=== PATIENT | male | born 1960 | race Caucasian/White ===

== ENCOUNTER → 2019-04-04 19:05 | Outpatient (ROUT) | payer OTHER, SELFPAY | PROVIDERS: Visit Provider Internal Medicine | DX: R30.0 Dysuria (principal) | CPT/HCPCS: 87086 ==

== ENCOUNTER → 2019-04-14 08:46 | Outpatient (CLI) | payer OTHER, SELFPAY ==
--- NOTE | 2019-04-14 | DI.MRI.S_ITS ---
PROCEDURE: MR LUMBAR SPINE WO CON INDICATIONS: Dysuria,Radiculopathy, lumbar region TECHNIQUE: Noncontrast sagittal T1 spin echo and T2 fast echo, sagittal STIR, axial T1 and T2 fast spin echo through the lumbar spine. In cases with scoliosis, additional coronal T2 fast spin echo may be performed. COMPARISON: None. FINDINGS: Image quality: Excellent. Alignment and Curvature: No plain films are available for comparison, for numbering purposes. Thus, for the purposes of this examination, 5 lumbar type vertebral bodies will be presumed, as denoted on the montage panel. This should be confirmed and correlated with plain films, prior to any lumbar spinal intervention.There is normal bony alignment. Bone Marrow: Marrow is of normal overall signal. No acute vertebral body compression fractures. There is mild reactive signal within the endplates adjacent to the the L2-L3, L3-L4, and L4-L5 intervertebral discs. Spinal Cord: Conus medullaris terminates at the lower L2 level. Visualized cord demonstrates normal signal and size. Paraspinous Soft Tissues: No paravertebral masses. L1-L2: Mild facet and ligamentum flavum hypertrophy. Mild epidural lipomatosis. Mild canal stenosis. No foraminal stenosis. L2-L3: Mild disc height loss and desiccation. Mild diffuse disc bulge/osteophyte. Mild facet and ligament flavum hypertrophy. Mild epidural lipomatosis. Moderate to severe canal stenosis. Mild bilateral foraminal stenosis. L3-L4: Moderate disc desiccation. Mild disc height loss. Mild diffuse disc bulge. Mild facet and ligamentum flavum hypertrophy. Mild epidural lipomatosis. Severe canal stenosis. Moderate subarticular foraminal stenosis bilaterally. L4-L5: Mild disc desiccation. Mild disc height loss. Mild diffuse disc bulge. Moderate facet and ligamentum flavum hypertrophy. Mild epidural lipomatosis. Severe canal stenosis. Moderate subarticular foraminal stenosis bilaterally. L5-S1: Mild disc height loss and desiccation. Mild diffuse disc bulge with superimposed broad-based left posterolateral protrusion. Mild bilateral facet hypertrophy. Mild canal stenosis. Mild left greater than right foraminal stenosis. IMPRESSION: 1. 5 lumbar type vertebral bodies were presumed for the current report. Plain films of the lumbar spine are recommended for confirmation, prior to any lumbar spinal intervention. 2. Multilevel degenerative disc and facet disease, as well as ligamentum flavum hypertrophy and epidural lipomatosis. 3. Multilevel canal stenoses, worst at L3-L4 and L4-L5, where there are severe canal stenoses present. Moderate to severe canal stenosis at L2-L3 is present. 4. Multilevel foraminal stenoses, worst at L3-L4 and L4-L5 bilaterally, where there are moderate foraminal stenosis present. Dictated by: Marcelo Moya M.D. on 04/14/2019 at 10:05 Approved by: Marcelo Moya M.D. on 04/14/2019 at 10:08
--- NOTE | 2019-04-14 | DI.MRI.S_ITS ---
PROCEDURE: MR CERVICAL SPINE WO CON INDICATIONS: Dysuria, Radiculopathy, lumbar region TECHNIQUE: Noncontrast sagittal T1 spin echo and T2 fast spin echo, sagittal STIR, foraminal oblique sagittal T2 fast spin echo, and axial gradient echo or T2 fast spin echo through the cervical spine. COMPARISON: [facility], MR, MR LUMBAR SPINE WO CON, 04/14/2019, 9:48. FINDINGS: Image quality: Excellent. Alignment and Curvature: There is normal bony alignment. Bone Marrow: Marrow demonstrates normal overall signal. Spinal Cord: Visualized spinal cord has normal size and signal. No cerebellar tonsillar herniation. Paraspinous Soft Tissues: No paravertebral masses. Prevertebral soft tissues are normal in thickness. C2-C3: The disc height and disc signal are relatively well-preserved. There is mild to moderate left-sided and no significant right-sided neural foraminal narrowing seen. Central canal narrowing is seen. C3-C4: The disc height is well-preserved. Loss of disc signal is seen at this level. Mild disc osteophyte complex is seen, with a mild central disc osteophyte protrusion. There is mild to moderate left-sided and no significant right-sided neural foraminal narrowing seen. Dibe-cx-jqtgjzxy central canal narrowing is seen. C4-C5: Mild loss of disc height is seen. Loss of disc signal is seen. Bridging endplate osteophytes are seen. Nvkj-ef-ddfybctc disc bulge is seen, which is eccentric to the left side. Pzcl-fe-aaohgspe facet hypertrophy is seen. There is mild left-sided and no right-sided neural foraminal narrowing seen. Mild central canal narrowing is seen. C5-C6: The disc height is well-preserved. Loss of disc signal is seen at this level. Moderate to prominent disc bulge is seen, which is eccentric to the left. There are disc osteophyte protrusions seen into both lateral recesses, as on series 4 image 26. Moderate to severe bilateral neural narrowing can be seen, left worse than right. Moderate central canal narrowing is seen. There is associated mass effect upon the ventral spinal cord. C6-C7: The disc height is well-preserved. Loss of disc signal is seen at this level. Moderate generalized disc osteophyte complex is seen. There is a superimposed central disc osteophyte protrusion seen. There is moderate right-sided and moderate to severe left-sided neural foraminal narrowing seen. Pqkh-ue-gxampwqk central canal narrowing is seen. C7-T1: No significant abnormality is seen. IMPRESSION: Multiple levels of cervical spine degenerative changes are seen, which are most prominent at the C5-C6 level. Dictated by: Dustin Booth M.D. on 04/14/2019 at 10:37 Approved by: Dustin Booth M.D. on 04/14/2019 at 10:47
--- NOTE | 2019-04-14 | DI.US.S_ITS ---
PROCEDURE: US RENAL COMPLETE INDICATIONS: DYSURIA TECHNIQUE: Real-time scanning was performed of the kidneys and bladder, with image documentation. COMPARISON: None. FINDINGS: Kidneys: Kidneys are normal in size. Right kidney measures 10.7 cm long; left kidney measures 10.8 cm long. Right renal cortical thickness is 1.0 cm; left renal cortical thickness is 1.4 cm. Renal cortical echotexture is normal. No hydronephrosis or nephrolithiasis. Possible hypoechoic mass involving the superior pole right kidney measuring 2.1 x 2.1 cm. Bladder: Pre-void bladder volume is 70 mL. Post-void residual is 0 mL. Pre-void images demonstrate no intraluminal masses or stones. On pre-void images, left ureteral jets are noted with color Doppler interrogation. (Of note, ureteral jets may not be detectable in up to 25% of cases due to insufficient differences in specific gravity between ureteral and bladder urine). Miscellaneous: No free pelvic fluid. IMPRESSION: 1. Possible hypoechoic superior pole right renal mass. Recommend renal protocol CT for further assessment. Dictated by: Hieu Roach [facility] Interpreted: Moisés Fulton MD on 04/14/2019 at 11:44 Approved by: Moisés Fulton M.D. on 04/15/2019 at 8:10
[2019-04-14 10:57] LABS: Add Manual Diff / Slide Review NO; Basophils Absolute Auto 100 /uL (0-100); Basophils Percent Auto 1.2 % (0-2); Eosinophils Absolute Auto 200 /uL (0-450); Eosinophils Percent Auto 4.5 % (2-4); Hematocrit 43.1 % (41-53); Lymphocytes Absolute Auto 1700 /uL (1100-4500); Lymphocytes Percent Auto 30.3 % (25-40); Mean Corpuscular HGB Conc 34.9 % (30-36); Mean Corpuscular Hemoglobin 30.4 PG (26-34); Monocytes Absolute Auto 500 /uL (0-900); Neutrophils Absolute Auto 3100 /uL (1500-7000); Platelet Count 251 X10^3/uL (150-400); Red Blood Cell Count 4.95 X10^6/uL (4.5-5.9); Red Cell Distribution Width 12.8 % (11.6-14.8); White Blood Cell Count 5.6 X10^3/uL (4.5-11.0)
[2019-04-14 11:01] LABS: Alanine Aminotransferase 78 IU/L (<50); Albumin 4.5 g/dL (3.5-5.0); Albumin Globulin Ratio 1.3 (1.0-2.8); Alkaline Phosphatase 67 U/L (38-126); Aspartate Aminotransferase 64 IU/L (17-59); BUN Creatinine Ratio 24.4 (6-22); Bilirubin Total 0.6 mg/dL (0.2-1.3); Blood Urea Nitrogen 22 mg/dL (9-20); Calcium 9.4 mg/dL (8.4-10.2); Carbon Dioxide 26 mmol/L (22-32); Chloride 104 mmol/L (98-107); Cholesterol 213 mg/dL (140-199); Estimated Glomerular Filt Rate > 60.0 mL/min (>60); Globulin 3.6 g/dL (1.7-4.1); Glucose 126 mg/dL (70-100); HDL Cholesterol 44 mg/dL (40-60); HEMOLYSIS < 15 (0-50); LDL Cholesterol Calculated 140 mg/dL (<100); Potassium 4.4 mmol/L (3.4-5.1); Sodium 139 mmol/L (137-145); Total Protein 8.1 g/dL (6.3-8.2); Triglycerides 143 mg/dL (35-150)
[2019-04-14 11:44] LABS: Vitamin D 25 Hydroxy (D3) 26.6 ng/mL (30.0-100.0)
[2019-04-14 11:48] LABS: Vitamin B12 424 pg/mL (239-931)
[2019-04-14 11:56] LABS: Thyroid Stimulating Hormone 2.79 uIU/mL (0.47-4.68)
[2019-04-17 15:12] LABS: PSA Total 0.46 ng/mL (< 4.01)
[2019-04-18 14:10] LABS: Albumin 4.1 g/dL (3.8-4.8); Alpha 1 Globulin 0.3 g/dL (0.2-0.3); Alpha 2 Globulin 0.8 g/dL (0.5-0.9); Beta 1 Globulin 0.4 g/dL (0.4-0.6); Gamma Globulin 1.1 g/dL (0.8-1.7); Protein, Total 7.2 g/dL (6.1-8.1)
== END ==
PROVIDERS: PCP Internal Medicine; Referring Provider Internal Medicine; Visit Provider Internal Medicine
DX: C80.1 Malignant (primary) neoplasm, unspecified (principal); R30.0 Dysuria; Z13.220 Encounter for screening for lipoid disorders; M47.812 Spondylosis without myelopathy or radiculopathy, cervical region; M51.16 Intervertebral disc disorders with radiculopathy, lumbar region; M48.061 Spinal stenosis, lumbar region without neurogenic claudication; M48.07 Spinal stenosis, lumbosacral region; N41.0 Acute prostatitis; R53.83 Other fatigue; R21 Rash and other nonspecific skin eruption; E88.2 Lipomatosis, not elsewhere classified
CPT/HCPCS: 36415; 72141; 72148; 76770; 80053; 80061; 82306; 82607; 84153; 84154; 84155; 84165; 84443; 85025

== ENCOUNTER → 2019-04-16 18:47 | Outpatient (ROUT) | payer OTHER, SELFPAY | PROVIDERS: PCP Internal Medicine; Visit Provider Internal Medicine | DX: R30.0 Dysuria (principal) | CPT/HCPCS: 87086 ==

== ENCOUNTER → 2019-05-01 10:17 | Outpatient (CLI) | payer OTHER, SELFPAY ==
--- NOTE | 2019-05-01 10:21 | DI.CT.S_ITS ---
PROCEDURE: CT ABDOMEN WO/W CON INDICATIONS: Other specified disorders of kidney and ureter, possible 2.1 cm hypoechoic superior third right renal cortical mass lesion seen by ultrasound 04/14/19. TECHNIQUE: Optional 5 mm thick noncontrast images acquired from the diaphragm to the iliac crests. After the administration of intravenous contrast, 5 mm thick images again acquired from the diaphragm to the iliac crests in the arterial and urographic phases. 5 mm thick coronal and sagittal reformats were then acquired. For radiation dose reduction, the following was used: automated exposure control, adjustment of mA and/or kV according to patient size. COMPARISON: [facility], US, US RENAL COMPLETE, 04/14/2019, 9:07. FINDINGS: Image quality: Excellent. Lung bases: Lung bases are clear. Heart size is normal. Genitourinary: At the superior right kidney medially there is a hypoechoic renal cortical structure which extends to the capsular border of the kidney medially, and which has a radiodensity on precontrast imaging of the 10.0 Hounsfield units. Subsequent early phase arterial enhancement radiodensity is 13.8 Hounsfield units, and significant rise. Subsequent delayed postcontrast imaging shows an internal radiodensity of 5.4. A definite malignant appearing mass is not present as cause of this appearance. For example, this could represent a proteinaceous cyst. This measures approximately 1.2 cm in maximal dimension. Other solid organs: Liver is normal in size and enhancement. Gallbladder appears normal. Biliary system is non dilated. Pancreas enhances normally. Spleen is normal in size and enhancement. No adrenal nodules. Peritoneum and bowel: Unenhanced bowel loops are normal in wall thickness and caliber. No free fluid or air. Nodes and vessels: No retroperitoneal or mesenteric adenopathy by size criteria. Aorta and inferior vena cava are normal in caliber. Bones: No suspicious bony lesions. No vertebral body compression fractures. Miscellaneous: No ventral hernias. IMPRESSION: The structure seen by prior ultrasound at the upper third of the right kidney had measured 2.1 cm in maximal dimension. The current visualized structure in that same general region measures only 1.2-1.3 cm in maximal dimension. The current structure does not show imaging characteristics of a definite renal cortical malignancy. It may represent a mildly proteinaceous cyst, for example. Based on these findings and the likelihood of benign etiology a 6 month targeted single organ ultrasound directed to the right kidney is recommended in 6 months. A decision at that time as to whether any additional followup would be warranted would be the appropriate next step. Dictated by: Moisés Fulton M.D. on 05/01/2019 at 13:51 Approved by: Moisés Fulton M.D. on 05/01/2019 at 14:13
== END ==
PROVIDERS: PCP Internal Medicine; Referring Provider Internal Medicine; Visit Provider Internal Medicine
DX: N28.89 Other specified disorders of kidney and ureter (principal)
CPT/HCPCS: 74170; Q9967

== ENCOUNTER → 2019-12-02 12:25 | Outpatient (CLI) | payer OTHER, SELFPAY ==
--- NOTE | 2019-12-02 12:44 | DI.CT.S_ITS ---
PROCEDURE: CT ABDOMEN WO/W CON INDICATIONS: Other specified disorders of kidney and ureter TECHNIQUE: Optional 5 mm thick noncontrast images acquired from the diaphragm to the iliac crests. After the administration of intravenous contrast, 5 mm thick images again acquired from the diaphragm to the iliac crests in the arterial and urographic phases. 5 mm thick coronal and sagittal reformats were then acquired. For radiation dose reduction, the following was used: automated exposure control, adjustment of mA and/or kV according to patient size. COMPARISON: [facility], US, US RENAL COMPLETE, 04/14/2019, 9:07. [facility], CT, CT ABDOMEN WO/W CON, 05/01/2019, 10:17. FINDINGS: Image quality: Excellent. Lung bases: Lung bases are clear. Heart size is normal. Genitourinary: There is a 1.3 cm corticomedullary cyst in the medial upper pole of the right kidney with precontrast Hounsfield units of 4.0. Postcontrast, there is a questionable fine internal septation, but no enhancing component, wall calcification, or other suspicious feature. Postcontrast Hounsfield units are less than 1.0. No suspicious solid mass in the right kidney to correspond to the ultrasound finding. No other renal lesions, cystic or solid. No nephrolithiasis or hydronephrosis. Visible ureters are normal caliber. Kidneys uptake and excrete IV contrast symmetrically. Other solid organs: Liver is normal in size and enhancement. Gallbladder is unremarkable . Biliary system is non dilated. Pancreas enhances normally. Spleen is normal in size and enhancement. No adrenal nodules. Peritoneum and bowel: Unenhanced bowel loops are normal in wall thickness and caliber. No free fluid or air. Nodes and vessels: No retroperitoneal or mesenteric adenopathy by size criteria. Aorta and inferior vena cava are normal in caliber. Bones: No suspicious bony lesions. Degenerative spurring throughout the visible thoracolumbar spine. No vertebral body compression fractures. Miscellaneous: No ventral hernias. IMPRESSION: 1. 1.3 cm right medial upper pole cyst is stable and without suspicious features. No further follow-up is needed. Dictated by: Sandy Corcoran M.D. on 12/03/2019 at 8:57 Approved by: Sandy Corcoran M.D. on 12/03/2019 at 9:05
== END ==
PROVIDERS: PCP Internal Medicine; Referring Provider Urology; Visit Provider Urology
DX: N28.89 Other specified disorders of kidney and ureter (principal); N28.1 Cyst of kidney, acquired
CPT/HCPCS: 74170; Q9967

== ENCOUNTER → 2022-07-27 12:43 | Outpatient (CLI) | payer OTHER, SELFPAY ==
--- NOTE | 2022-07-27 | DI.US.S_ITS ---
PROCEDURE: US ABDOMEN LIMITED INDICATIONS: ELEVATED LFTS TECHNIQUE: Real-time focused scanning was performed of the abdomen, with image documentation. COMPARISON: None. FINDINGS: Liver is enlarged measuring 17.9 cm with steatosis. Gallbladder demonstrates no stones. Wall thickness is prominent measuring 3.6 mm. Common bile duct measures 3.1 cm. IMPRESSION: Hepatomegaly with steatosis. Thickened gallbladder wall without stones. While this could represent acalculous cholecystitis, similar imaging appearance can be seen with hepatic disease. Dictated by: Cammy Quiñonez M.D. on 07/27/2022 at 16:42 Approved by: Cammy Quiñonez M.D. on 07/27/2022 at 16:42
--- NOTE | 2022-07-27 | DI.US.S_ITS ---
PROCEDURE: US RENAL COMPLETE INDICATIONS: ELEVATED LFTS TECHNIQUE: Real-time scanning was performed of the kidneys and bladder, with image documentation. COMPARISON: [facility], , RENAL COMPLETE, 04/14/2019, 9:07. FINDINGS: Kidneys: Kidneys are normal in size. Right kidney measures 10.0 cm long; left kidney measures 10.8 cm long. Right renal cortical thickness is 1.5 cm; left renal cortical thickness is 1.7 cm. Renal cortical echotexture is normal. No hydronephrosis or nephrolithiasis. No suspicious solid mass lesions. Bladder: Pre-void bladder volume is 60.5 mL. Post-void imaging obtained. Pre-void images demonstrate no intraluminal masses or stones. On pre-void images, no right ureteral jet is seen. Left ureteral jet is seen. Miscellaneous: No free pelvic fluid. IMPRESSION: No hydronephrosis. Dictated by: Marcelo Moya M.D. on 07/27/2022 at 14:55 Transcribed by: MICHAEL on 07/27/2022 at 14:57 Approved by: Marcelo Moya M.D. on 07/27/2022 at 16:02
== END ==
PROVIDERS: PCP Physician Assistant; Referring Provider Physician Assistant; Visit Provider Physician Assistant
DX: R79.89 Other specified abnormal findings of blood chemistry (principal); R16.0 Hepatomegaly, not elsewhere classified; K76.0 Fatty (change of) liver, not elsewhere classified
CPT/HCPCS: 76705; 76770

== ENCOUNTER 2022-08-21 06:53 | Day surgery (SDC) | payer OTHER, SELFPAY ==
--- NOTE | 2022-08-21 | PATH_ITS ---
[facility] Accession Number: [id number] No. of containers..02 Tissue . 01 Material submitted: . PART A: colon - TRANSVERSE COLON POLYP PART B: rectum - RECTUM POLYP . 01 Diagnosis: A. Transverse Colon Polyp: Tubular adenoma. . B. Rectum, Polyp: Hyperplastic polyp. MRV 08/25/2022 1406 Local . 01 Electronically signed: . Ken Hull MD, PhD, Pathologist NPI- [id number] . 01 Gross description: . Part A: TRANSVERSE COLON POLYP: Received in formalin are 2 fragment(s) of alan, soft tissue measuring 0.1 x 0.1 x 0.1 cm to 0.2 x 0.2 x 0.2 cm submitted entirely in 1 cassette(s) Part B: RECTUM POLYP: Received in formalin is 1 fragment(s) of alan, soft tissue measuring 0.3 x 0.3 x 0.3 cm submitted entirely in 1 cassette(s) /DUSTIN 08/24/2022 0044 Local . 01 Pathologist provided ICD-10: D12.3, K62.1 . 01 CPT . 235510, 614503 Specimen Comment: A courtesy copy of this report has been sent to [phone] Performed at: 01 [facility] [address] [place] [address] [address], [place], [place] [id number] MD Conner Arroyo MD Phone: [phone]
[2022-08-21 07:16] VITALS: BMI 42.2
[2022-08-21 07:28] VITALS: BP 145/88; PULSE 79; RESP 21; TEMP 36.3; O2SAT 97
[2022-08-21] MEDS: LACTATED RINGERS 1,000 ML 42 ML IV (07:37)
--- NOTE | 2022-08-21 07:56 | P.HP_ITS ---
History of Present Illness History of Present Illness Date Patient Seen: 08/21/22 Time Patient Seen: 07:57 Chief complaint: Dx Colonoscopy Narrative: History of colon polyps COUNT INCLUDES THE [facility] Social History household members: other Smoking Status: Never smoker alcohol intake: current Meds Home Medications and Allergies Home Medications Medication Instructions Recorded Confirmed Type cholecalciferol (vitamin D3) 50 50 mcg PO DAILY 08/21/22 08/21/22 History mcg (2,000 unit) capsule (Vitamin D3) geriatric multivitamin-min 1 tab PO DAILY 08/21/22 08/21/22 History omega 6-xlh-hib-fish oil 100 1 cap PO DAILY 08/21/22 08/21/22 History mg-160 mg-1,000 mg capsule (Fish Oil) rosuvastatin 5 mg tablet 5 mg PO DAILY 08/21/22 08/21/22 History Allergies Allergy/AdvReac Type Severity Reaction Status Date / Time No Known Drug Allergies Allergy Verified 08/21/22 07:11 Review of Systems Review of Systems ROS: Yes All systems reviewed with the patient and are negative except as otherwise documented Exam Vital Signs (past 8 hours): - 08/21/22 07:28 Temperature 97.3 F L Pulse Rate 79 Respiratory Rate 21 Blood Pressure 145/88 H Pulse Oximetry 97 Oxygen Delivery Method Room Air Oxygen Delivery Method Room Air Const General: cooperative HENMT Head: normal to inspection Eyes General: appearance normal, both eyes and all related structures Neck Neck: normal visual inspection Chest Chest: normal inspection of the chest Resp Effort & Inspection: normal respiratory effort Cardio Rate: regular rate GI Inspection: normal to inspection Skin General: no rashes or lesions noted Neuro General: patient alert and patient awake Extrem General: normal to inspection and no pedal edema Psych Appearance: grossly normal Assessment & Plan Assessment & Plan narrative: 62-year-old with a personal history of colon polyps. Colonoscopy is pursued today.
--- NOTE | 2022-08-21 07:57 | PM.PREOP ---
Pre-operative Note Interval Note History & Physical reviewed/Exam performed by Physician: Yes Changes to H&P: No ASA Class (for procedural sedation): II
--- NOTE | 2022-08-21 08:23 | PM.OP.COLON ---
Operative Date/Time/Diagnoses Date of procedure: 08/21/22 Time of procedure: 08:23 Pre-op diagnosis: History of colon polyps Post-op diagnosis: same Procedure & Clinicians Study performed: Colonoscopy with cold snare polypectomy and cold forceps polypectomy Same procedure as scheduled: Yes Indications: History of colon polyps Surgeon: Wlimar Gomez Procedure Notes SCOAP/Timeout: Done Procedure in detail: After the risks and benefits were explained, written and verbal informed consent was obtained. The patient was brought into the procedure room and placed into the left lateral decubitus position. Please see anesthesia notes for sedation details. Digital rectal examination was accomplished. The scope was introduced into the patient and advanced under direct visualization to the cecum as identified by the appendiceal orifice and ileocecal valve. The scope was slowly withdrawn to carefully examine the mucosa for any defects or lesions. Comprehensive imaging was accomplished throughout the rectum including the dentate line. The colon was decompressed, the scope was then removed from the patient who tolerated the procedure well. Adult colonoscope Bowel prep adequate Scope withdrawal time: 9 minutes Sedation minutes: 19 Complications: none Impression: There was a 4 mm polyp in the transverse removed with cold snare. There was a small fragment of this polyp that seemed to remain after this maneuver so it was fully excised with cold forceps. There was another 3 mm polyp in the rectum also removed with cold forceps. No additional mucosal pathology was appreciated throughout. Patient had grade 1 internal hemorrhoids with hypertrophied anal papillae. Endoscopic diagnosis 1. Grade 1 hemorrhoids with hypertrophied anal papillae 2. Diminutive colon polyps x2 Post-procedure Plan for aftercare: 1. Await histopathology. 2. Surveillance colonoscopy will be contingent on histology results. Disposition: PACU
[2022-08-21 08:26] VITALS: BP 105/68; PULSE 74; RESP 8; TEMP 36.6; O2SAT 94
[2022-08-21 08:31] VITALS: BP 105/68; PULSE 74; RESP 20; O2SAT 94
[2022-08-21 08:36] VITALS: BP 104/67; PULSE 67; RESP 14; O2SAT 93
[2022-08-21 08:42] VITALS: BP 104/68; PULSE 81; RESP 18; O2SAT 94
== END 2022-08-21 09:13 | disposition home or self-care (01) ==
PROVIDERS: PCP Physician Assistant; Referring Provider Internal Medicine Gastroenterology; Visit Provider Internal Medicine Gastroenterology
PROC: 0DJD8ZZ Inspection of Lower Intestinal Tract, Via Natural or Artificial Opening Endoscopic (ICD-10-PCS; CPT 45378; principal; 2022-08-21 08:00)
DX: Z12.11 Encounter for screening for malignant neoplasm of colon (principal); Z86.010 Personal history of colon polyps; K64.0 First degree hemorrhoids; K64.4 Residual hemorrhoidal skin tags; D12.3 Benign neoplasm of transverse colon; K62.1 Rectal polyp
CPT/HCPCS: 45380; J2704

== ENCOUNTER → 2022-08-25 14:05 | Outpatient (CLI) | payer OTHER, SELFPAY ==
--- NOTE | 2022-08-25 | DI.RAD.S_ITS ---
PROCEDURE: XR FOOT LT MIN 3V INDICATIONS: left foot pain TECHNIQUE: 3 views of the foot were acquired. COMPARISON: None. FINDINGS: Bones: No acute fractures or dislocations. No suspicious bony lesions. Moderate to severe degenerative changes at the 1st metatarsophalangeal joint and the metatarsal sesamoid articulations. Osseous protuberance is seen at the plantar medial base of the 1st distal phalanx. Scattered degenerative changes are seen in the interphalangeal joints of the toes. Bulky dorsal osteophyte formation is seen at the tarsometatarsal joints and at the lateral aspect of the calcaneocuboid joint. Large plantar and posterior calcaneal enthesophytes are present. Soft tissues: No suspicious soft tissue calcification. Mild nonspecific soft tissue edema is present. IMPRESSION: 1. No acute osseous abnormality. 2. 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 3. Bulky enthesophyte formation is seen throughout the foot. Approved by: Mca Vaz M.D. on 08/25/2022 at 16:40
== END ==
PROVIDERS: PCP Physician Assistant; Referring Provider Physician Assistant; Visit Provider Physician Assistant
DX: M19.072 Primary osteoarthritis, left ankle and foot (principal); M79.672 Pain in left foot
CPT/HCPCS: 73630

== ENCOUNTER → 2023-02-07 10:53 | Outpatient (CLI) | payer OTHER, SELFPAY ==
--- NOTE | 2023-02-07 | DI.RAD.S_ITS ---
PROCEDURE: FL BARIUM SWALLOW W SPEECH INDICATIONS: PHARYNGEAL DYSPHAGIA COMPARISON: None. TECHNIQUE: Examination was conducted in conjunction with speech pathology per standard protocol. In the lateral projection, filming was performed of the patient swallowing. AP projection filming may also be performed with patient swallowing. COMPARISON: FINDINGS: Function: The oral preparatory phase appears normal, with proper containment. The subsequent oral propulsive phase, pharyngeal phase, and esophageal phase of swallowing also appear normal with all proffered substances. There was flash laryngotracheal penetration no aspiration. No pathologic vallecular pooling. There is a relative narrowing of the esophagus is secondary to bony osteophytes of the cervical spine at C3-C4. Morphology: No cricopharyngeal bar is identified. No cervical esophageal webs. No Zenker's diverticulum. There is inability to pass the barium tablet present during the examination and given the imaging findings I would recommend endoscopy to visualized for possible stricture. IMPRESSION: 1. Flash laryngeal penetration on thin liquids. 2. Relative with narrowing of the upper esophagus secondary to anterior bony osteophyte formation off the C3-C4 vertebral level. 3. Inability to pass the barium tablet with retained barium noted in the lower esophagus during the examination worrisome for stricture. Given the imaging findings I would recommend direct visualization of the GE junction with endoscopy. Dictated by: Fabricio Camilo M.D. on 02/07/2023 at 12:14 Approved by: Fabricio Camilo M.D. on 02/07/2023 at 12:18
--- NOTE | 2023-02-07 15:49 | ST.SWALLOW ---
Visit Care Team Role Provider Type Charito Cyr PA-C Primary Care Provider Advanced Blocker Automatic Specialty: Medical Address: [address] [place] [address], [id number] Email: Feliz Saba MD Attending Provider Physician Referring Provider Specialty: Ear, Nose, Throat Address: [address] [place] [address], [id number] Email: [email or web address] Modified Barium Swallow Study GAS BLENDER Modified Barium Swallow Study Start: 02/07/23 12:34 Freq: Status: Active Protocol: Document 02/07/23 12:38 LNK (Rec: 02/07/23 15:49 LNK [id number]) Modified Barium Swallow Study Total Time Visit Start Time 11:00 Visit Stop Time 11:40 Total Visit Minutes 40 Referral Referring Physician ARYA Monet Reason for Referral pharyngeal dysphagia Setting Setting Outpatient Care Patient Information Identification Type Name,Date of Patient History pt was seen for a Modified Barium Swallow Study(MBSS) at the referral of Dr. Saba, ENT. Pt reports difficulty swallowing solids and swallowing air with liquids. Additionally, he noted choking on aspirated saliva when reclined. Pt reports that with solids, he feels as though they are stuck in the back of his throat, near the top of my throat. He denies nasal regurgitation and/or regurgitation of undigested solids. He also reported that when drinking liquids, he swallows a lot of air. Pt noted that he has been having difficulty with swallowing for about one year, with increasing difficulty within the past 6 months. Of note, pt reported a change in his statin medication approximately 6 months ago. he denied and injury or surgery to the neck area and he denied any neurological diagnoses, Subjective Observations Pt was seated in the fluoroscopy chair with directions and procedure described for him. Pt indicated he understood and agreed to proceed. Patient Positioning Position View Lat-A/P Imaging Lateral View Textures Administered Trials Presented Thin Liquid via Spoon (IDDSI 0 ),Thin Liquid via Cup (IDDSI 0 ),Extremely Thick Liquid via Spoon (IDDSI 4),Regular (IDDSI 7) The IDDSI Framework Protocol: IDDSI.1 Oral Impairment Source: The Modified Barium Swallow Impairment Profile (MBSImP??) Lip Closure No labial escape Tongue Control During Bolus Hold Cohesive bolus between tongue to palatal seal Bolus Preparation/Mastication Timely & efficient chewing & mashing Bolus Transport/Lingual Motion Brisk tongue motion Oral Residue Complete oral clearance Initiation of Pharyngeal Swallow Bolus head at posterior angle of ramus (first hyoid excursion) Additional Oral Impairment Observations OME and DKS was observed to be WNL. Mastication was good withe noted rotary chew pattern. Bolus formation, control and AP transition observed to be WNL. No oral residual of contrast/trial substances observed. Pharyngeal Impairment Source: The Modified Barium Swallow Impairment Profile (MBSImP??) Soft Palate Elevation No bolus between soft palate & pharyngeal wall Laryngeal Elevation Comp.sup.move.thyroid cart.w/ comp.approx.arytenoids to epiglot petiole Anterior Hyoid Excursion Partial anterior movement Epiglottic Movement Partial inversion Laryngeal Vestibular Closure Incomplete; narrow column air/ contrast in laryngeal vestibule Pharyngeal Stripping Wave Present - diminished Pharyngoesophageal Segment Opening Partial distention/partial duration; partial obstruction of flow Tongue Base Retraction Narrow column of contrast/air betwn tongue base & post. pharyngeal wall Pharyngeal Residue Trace residue within/on pharyngeal structures Location Diffuse (>3 areas) Additional Pharyngeal Impairment Mild tongue base weakness was Observations noted that impacted the hyoid movement forward and the epiglottal inversion. The larynx elevated as expected. The epiglottic closure of the laryngeal vestibule was incomplete in that flash penetration was observed x4 with trace contrast observed within the larynx on the vocal folds (PAS3). 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 The pharyngeal tissue near the osteophyte narrowed the pharynx near the hyoid/ epiglottis. Liquids were observed to clear this narrowing; however, for the semi-solid and solid trials, solids were partially cleared, requiring 5+ swallows were needed in order to clear the bolus in the pharynx into the PES. Additionally, the osteophyte appeared to interfere with the extension and duration of the PES opening for solid trials. This would be related to the pt's c/o food stopping in the back of his throat and being unable to swallow. Residual contrast within the pharynx was diffuse. A/P View Textures Administered Trials Presented Thin Liquid via Spoon (IDDSI 0 ) The IDDSI Framework Protocol: IDDSI.1 A/P View Observations Pharyngeal Contraction Complete Esophageal Clearance Upright Position Esophageal retention Esophageal Function Slowed Clearing,Stasis Additional A-P Observations Following trials in the lateral view the pt was repositioned for AP view. A scan of the esophagus indicated esophageal retention and slow clearance of the cookie+contrast into the stomach. Three to four swallows of water were needed to clear the contrast. During this time the pt reported that there was a sensation of the food still in his throat and that it is still stuck and won't go down. A barium tablet also was stopped at narrowing near the GE junction and required several sips of water in order to pass into the stomach. Again the pt c/o the pill not going down. Clinical Impressions Dysphagia Type Pharyngeal,Esophageal Findings Please review above oral, pharyngeal, and esophageal phases of swallowing for details. 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 Referral to GI is recommended. The above results were discussed and shown to the pt. It was recommended to the pt that he reduce bite sizes of solids and alternate solids with liquids to enable the bolus to pass narrowing caused by the osteophyte. Additional liquids would also assist in clearing residue from the esophagus into the stomach. The pharyngeal and esophageal results were discussed with the pt relative to his sensation of inability to pharyngeally swallow as well as the retention of contrast within his esophagus. Pt was concerned about how much air he was swallowing. Aeophagia was noted and therapy may be affective. Alternatives swallow strategies were described for the pt (e.g., slow tongue-roll through the pharynx and purposely holding breath prior to swallow, releasing breath following swallow. The complicating factors relative to the efficacy of swallow therapy are the osteophyte size, position and narrowing of the pharynx. This was discussed with the pt . Rehabilitation Potential Good Patient Appropriate for Therapy Yes Recommendations Diet Comments No diet changes were recommended Aspiration Precautions Recommended Precautions Upright at 90 Degrees, Alternate Liquids/Solids,Small Bites/Sips Treatment Plan Therapy Recommendations Outpatient Speech Therapy Recommended Referrals GI Consult Therapy Strategy Recommendations Small Bites and Sips,Alternate Liquids/Solids
== END ==
PROVIDERS: PCP Physician Assistant; Referring Provider Otolaryngology; Visit Provider Otolaryngology
DX: R13.13 Dysphagia, pharyngeal phase (principal); M25.78 Osteophyte, vertebrae
CPT/HCPCS: 74230